=== PATIENT | female | born 1970 | race Caucasian/White ===

== ENCOUNTER 2021-07-07 10:51 | Outpatient (RCR) | payer OTHER | END 2021-07-10 | LOC: PT 10:51 | PROVIDERS: ATTEND Neurological Surgery | DX: M54.12 Radiculopathy, cervical region (principal) ==

== ENCOUNTER 2021-08-09 16:00 | Outpatient (RCR) | payer OTHER | END 2021-08-10 | LOC: PT 16:00 | PROVIDERS: ATTEND Neurological Surgery | DX: M50.10 Cervical disc disorder with radiculopathy, unspecified cervical region (principal) | CPT/HCPCS: 97139 ==

== ENCOUNTER 2021-08-29 16:55 | Outpatient (RCR) | payer OTHER | END 2021-09-09 | LOC: PT 16:55 | PROVIDERS: ATTEND Neurological Surgery | DX: M50.10 Cervical disc disorder with radiculopathy, unspecified cervical region (principal) | CPT/HCPCS: 97139 ==